=== PATIENT | male | born 1965 | race African-American/Black ===

== ENCOUNTER 2016-12-28 10:28 | Emergency (ER) | payer OTHER ==
[~2016-12-28] VITALS: Ht 182.9 cm; Wt 144.0 kg
[~2016-12-28 10:28] MED LIST: ASPI-556 PO; ATOR40TA28 PO; ATOR80TA PO; CHOL200016 PO; CITA10TA68 PO; GABA-531 PO; LISI-661 PO; MAGOX PO; METF500T4 PO; PANT40TA25 PO; QUET300T2 PO
[2016-12-28 10:39] VITALS: BP 115/85
[2016-12-28 10:46] LABS: GLUCOSE,POINT OF CARE 234 MG/DL (70-110)
[2016-12-28] MEDS ORDERED: METHOCARBAMOL 500 MG TABLET PO ONE ×2 (12:15→12:30)
[2016-12-28] MEDS ORDERED: KETOROLAC TROMETHAMINE 60 MG/2 ML VIAL IM ONE (12:15)
== END 2016-12-28 13:23 | disposition home or self-care (01) ==
LOC: EMS 10:30 → EDBD 10:30 → EMS 13:23
DX: S13.4XXA Sprain of ligaments of cervical spine, initial encounter (principal); G89.29 Other chronic pain; I10 Essential (primary) hypertension; F17.210 Nicotine dependence, cigarettes, uncomplicated; F15.90 Other stimulant use, unspecified, uncomplicated; Z79.82 Long term (current) use of aspirin; W01.0XXA Fall on same level from slipping, tripping and stumbling without subsequent striking against object, initial encounter; Y93.E1 Activity, personal bathing and showering; Y92.89 Other specified places as the place of occurrence of the external cause; Y99.8 Other external cause status
CPT/HCPCS: 82962; 96372; 99283; J1885

== ENCOUNTER 2025-04-03 09:40 | Emergency (ER) | payer MEDICARE, OTHER ==
[~2025-04-03] VITALS: Ht 182.9 cm; Wt 132.3 kg
[~2025-04-03 09:40] MED LIST changes: -ASPI-556 PO; +ATEN-73 PO; -ATOR40TA28 PO; +ATOR40TA71 PO; -ATOR80TA PO; -CHOL200016 PO; -CITA10TA68 PO; +GABA-1216 PO; -GABA-531 PO; +HYDR50CA6 PO; -LISI-661 PO; +LOSA-382 PO; -MAGOX PO; +METF-446 PO; -METF500T4 PO; +PALI3TAB14 PO; -PANT40TA25 PO; -QUET300T2 PO; +QUET400T13 PO; +SITA50 PO
[2025-04-03 09:44] VITALS: BP 142/87; PULSE 91; RESP 20; TEMP 98; O2SAT 98
[2025-04-03] MEDS ORDERED: ATEN-187 PO ×2 (09:50→10:08)
[2025-04-03] MEDS ORDERED: QUET400T13 PO (10:08)
[2025-04-03] MEDS ORDERED: METF-446 PO (10:08)
== END 2025-04-03 10:43 | disposition home or self-care (01) ==
LOC: EMS 09:42
DX: E11.9 Type 2 diabetes mellitus without complications (principal); I10 Essential (primary) hypertension; Z76.0 Encounter for issue of repeat prescription; F17.210 Nicotine dependence, cigarettes, uncomplicated; F20.9 Schizophrenia, unspecified; F12.90 Cannabis use, unspecified, uncomplicated; Z79.899 Other long term (current) drug therapy
CPT/HCPCS: 99281; Z7502